=== PATIENT | female | born 1985 | race African-American/Black ===

== ENCOUNTER 2022-10-16 12:15 | Emergency (ER) | payer MEDICAID, OTHER ==
[~2022-10-16] VITALS: Ht 160 cm; Wt 53.0 kg
[2022-10-16 12:31] VITALS: BP 138/92
== END 2022-10-16 18:57 | disposition home or self-care (01) ==
LOC: ER 13:04
DX: Z53.21 Procedure and treatment not carried out due to patient leaving prior to being seen by health care provider (principal); I49.9 Cardiac arrhythmia, unspecified
CPT/HCPCS: 93005; 99281